=== PATIENT | female | born 1955 | race Caucasian/White ===

== ENCOUNTER → 2016-12-13 | Outpatient (CLI) | payer OTHER ==
[~2016-12-13] MED LIST: ALLERGY RELIEF10 M6 PO; ESCITALOPRAM OX20 MG PO; MONTELUKAST SOD10 MG PO
--- NOTE | ~2016-12-13 | CR127 ---
[facility] A Service of [facility] & [facility] RADIOLOGY TEXT RESULTS PATIENT: DAIJA CRAMER LOCATION: [facility] : 51 UNIT #: [id number] AGE: [address]: ELADIO LENZ APRN SEX: F ORDER DR: [id number] [facility] [address] [place], [place] [address] [id number] O MR#: [id number] Acc #: [id number] NAME: DAIJA CRAMER : 1955 SEX: F STUDY DATE/TIME: 12/13/2016 9:56 UNIT: [facility] ROOM: STUDY DESCRIPTION: CR Foot Complete Min 3 View Rt Attending Physician: Eladio Lenz Aprn Referring Physician: Eladio Lenz Aprn Ordering Physician: Eladio Lenz Aprn Primary Care Physician: [facility], MEDICAL IMAGING REPORT This report is preliminary unless electronic signature is present EXAM Right foot 3 views 12/13/2016 HISTORY Right foot pain plantar surface of foot when walking for 3 days. No known injury. FINDINGS The tarsal, metatarsal, and phalangeal elements are all anatomically normal in position and alignment. There are no articular defects. No fractures or radiopaque foreign bodies in the soft tissues are apparent. IMPRESSION Normal foot. Dictated by... Dom Roberts M.D. THIS IS AN ELECTRONICALLY VERIFIED REPORT Dom Roberts M.D. at 12/16/2016 12:18 PM KRT/jennifer TD: 12/14/2016 02:44 JOB #: [id number] MEDICAL IMAGING REPORT Page 1 of 1 COPY
== END | disposition home or self-care (01) ==
LOC: CRAD 09:41
DX: M79.671 Pain in right foot (principal)
CPT/HCPCS: 73630

== ENCOUNTER → 2017-04-09 | Outpatient (CLI) | payer OTHER ==
--- NOTE | ~2017-04-09 | CT57 ---
[facility] A Service of [facility] & [facility] RADIOLOGY TEXT RESULTS PATIENT: DAIJA CRAMER LOCATION: [facility] : 51 UNIT #: [id number] AGE: [address]: Janna Thurman SEX: F ORDER DR: [id number] [facility] [address] [place], [place] [address] [id number] O MR#: [id number] Acc #: [id number] NAME: DAIJA CRAMER : 1955 SEX: F STUDY DATE/TIME: 04/09/2017 13:41 UNIT: [facility] ROOM: STUDY DESCRIPTION: CT Chest Wo Cont Attending Physician: Janna Thurman A.P.R.N. Referring Physician: Janna Thurman A.P.R.N. Ordering Physician: Janna Thurman A.P.R.N. Primary Care Physician: Abbie Goodwin M.D. MEDICAL IMAGING REPORT This report is preliminary unless electronic signature is present EXAM Chest CT, high-resolution protocol without contrast, 04/09/2017 INDICATIONS 61-year-old female with a cough for 2 years. History of skin cancer. Allergic rhinitis. Chest x-ray at an outside facility that demonstrated "increased markings bilaterally." Chest CT requested for further assessment. TECHNIQUE Noncontrast CT scan of the chest was performed utilizing standard axial helical images and high-resolution protocol imaging with 1.5 mm axial slices obtained at 10 mm intervals in the supine and prone positions. We have no comparison studies. Correlation is made with chest x-ray 03/29/2014. This CT exam was performed with one or more of the following radiation dose reduction techniques: Automatic exposure control, adjustment of mA and/or kV according to patient size, and iterative reconstruction. FINDINGS CT CHEST: Included thyroid unremarkable. No pericardial effusion. There is no axillary or mediastinal adenopathy. Aorta demonstrates no aneurysm. Included upper abdomen demonstrates fatty infiltration of the liver and surgical absence of the gallbladder. No pleural effusion or evidence of pneumonia, no pneumothorax. There is biapical scarring. Old healed granulomatous disease. No suspicious pulmonary nodule. No significant bronchiectasis. No subpleural fibrosis or scarring in the lung bases or significant atelectasis. No subpleural honeycomb formation or distinct septal thickening. No significant air trapping. [facility] A Service of [facility] RADIOLOGY TEXT RESULTS PATIENT: DAIJA CRAMER LOCATION: [facility] : 51 UNIT #: [id number] AGE: [address]: Janna Thurman SEX: F ORDER DR: demonstrate no additional finding. There are degenerative changes in the thoracic spine. IMPRESSION 1. Essentially negative high-resolution CT scan of the chest. There is old, healed granulomatous disease and there is some minimal apical pleural scarring, and fibrosis but the lungs are clear. There is no significant septal thickening, bronchiectasis, subpleural honeycomb formation, or air trapping present. 2. There is no adenopathy or pericardial effusion. 3. Included upper abdomen demonstrates surgical absence of the gallbladder and fatty infiltration of the liver. Dictated by... José Antonio Cleary M.D. THIS IS AN ELECTRONICALLY VERIFIED REPORT José Antonio Cleary M.D. at 04/10/2017 2:16 PM YVES/carissa TD: 04/10/2017 00:50 JOB #: [id number] MEDICAL IMAGING REPORT Page 1 of 1 COPY
== END | disposition home or self-care (01) ==
LOC: CCAT 13:21
DX: J30.9 Allergic rhinitis, unspecified (principal); R93.8 Abnormal findings on diagnostic imaging of other specified body structures; K76.0 Fatty (change of) liver, not elsewhere classified; Z90.49 Acquired absence of other specified parts of digestive tract
CPT/HCPCS: 71250